=== PATIENT | male | born 2000 | race Two or more races ===

== ENCOUNTER 2019-01-21 15:06 | Emergency (ER) | payer OTHER ==
[~2019-01-21] VITALS: Ht 160 cm; Wt 59.0 kg
[2019-01-21 15:12] VITALS: BP 145/82
[2019-01-21] MEDS ORDERED: DIPH,PERTUSS(ACELL),TET VAC/PF 0.5 ML IM-VACC ONE ×2 (15:24→15:30)
[2019-01-21] MEDS ORDERED: HYDROcodone/APAP 5/325 TABLET ONE (15:52)
[2019-01-21] MEDS ORDERED: IBUPROFEN 600 MG TABLET ONE (15:53)
[2019-01-21] MEDS ORDERED: HYDROcodone/APAP 5/325 TABLET PO ONE (16:00)
[2019-01-21] MEDS ORDERED: IBUPROFEN 600 MG TABLET PO ONE (16:00)
[2019-01-21] MEDS ORDERED: BACITRACIN ZINC OINT 500U/GM, 0.9 GM ONE (16:10)
== END 2019-01-21 16:47 | disposition home or self-care (01) ==
LOC: ED 16:30
DX: S71.141A Puncture wound with foreign body, right thigh, initial encounter (principal); W45.0XXA Nail entering through skin, initial encounter; Y93.89 Activity, other specified; Y92.69 Other specified industrial and construction area as the place of occurrence of the external cause; Y99.0 Civilian activity done for income or pay
CPT/HCPCS: 90471; 90715; 99284